=== PATIENT | female | born 1945 | race Caucasian/White ===

== ENCOUNTER 2018-12-12 09:45 | Day surgery (SDC) | payer MEDICARE, SELFPAY ==
[2018-12-12] MEDS: PROPARACAINE 0.5% OPHTH SOL 2 DROPS EYE-OP (10:30)
[2018-12-12 10:34] VITALS: BP 135/67; PULSE 63; RESP 15; TEMP 36.4; O2SAT 98; BMI 25.8
[2018-12-12] MEDS: CATARACT EYE COMPOUND (10 DROPS/SYRINGE) 3 DROPS EYE-OP (10:43)
--- NOTE | 2018-12-12 11:32 | PM.PREOP ---
Pre-operative Note Interval Note History & Physical reviewed/Exam performed by Physician: Yes Changes to H&P: No
[2018-12-12] MEDS: PHENYLEPHRINE/LIDOCAINE VIAL (OR) 0.2 ML EYE-OP (11:57)
[2018-12-12] MEDS: CHONDROIDTIN/SOD HYALURONATE 1.05 ML SYRINGE INTRAOCULA (11:58)
[2018-12-12] MEDS: MOXIFLOXACIN OPHTH DROPS 3 ML BOTTLE 2 DROPS INJ (11:58)
[2018-12-12] MEDS: BALANCED SALT IRRIG SOLN NO.2 500 ML, EPINEPHrine 1 MG IRR (11:58)
[2018-12-12] MEDS: TETRACAINE 0.5% OPHTH DROPS 4 ML 2 DROPS EYE-RIGHT (11:59)
[2018-12-12] MEDS: LIDOCAINE 2% INJ SDV 5 ML INJ (12:00)
[2018-12-12 12:16] VITALS: BP 95/65; PULSE 55; RESP 16; TEMP 36.3; O2SAT 97
--- NOTE | 2018-12-12 12:16 | PM.OP.1 ---
Procedure & Clinicians Procedure: cataract extraction with inraocular lens implant, right Same procedure as scheduled: Yes Indications: Visually significant cataract combined form, right Surgeon: Julian Francois Click Yes if Unassisted: Yes Anesthesia Type: MAC +/- Operative Notes Procedure in detail: The patient was brought to the operating suite. The correct patient, surgical site and lens were confirmed. 0.5 % tetracaine drops were placed in the right eye. The patient was prepped and draped in the typical sterile manner. A lid speculum was placed in the eye. 2% lidocaine was placed on the eye. A paracentesis port was created with a side-port blade. 0.1 mL of 1 preservative free lidocaine with phenylephrine was injected into the anterior chamber. Viscoelastic was injected into the anterior chamber. A 2.6mm keratome was used to create a clear corneal temporal incision. Cystotome and Utrata forceps were used to create a continuous curvilinear capsulorrhexis. Balanced salt solution was used to hydrodissect the nucleus. Phacoemulsification was used to remove the lens. The capsular bag was inflated with viscoelastic. A King ZBOO 20.0D lens was inserted into the capsule. Viscoelastic was removed and the wound hydrated. The wound was found to be leak free and the eye was assessed to be at normal physiologic pressure. 0.1mL Vigamox was injected into the anterior chamber. The lid speculum was removed and the patient left the operating room in excellent condition. Complications: none Condition: stable Disposition: same day surgery
== END 2018-12-12 12:35 | disposition home or self-care (01) ==
LOC: OR 09:48
PROVIDERS: Visit Provider Ophthalmology
DX: H25.11 Age-related nuclear cataract, right eye (principal)
CPT/HCPCS: J0171; J2250; J3010

== ENCOUNTER 2018-12-26 09:37 | Day surgery (SDC) | payer MEDICARE, SELFPAY ==
[2018-12-26] MEDS: PROPARACAINE 0.5% OPHTH SOL 2 DROPS EYE-OP (10:10)
[2018-12-26 10:12] VITALS: BMI 26.6
[2018-12-26] MEDS: CATARACT EYE COMPOUND (10 DROPS/SYRINGE) 3 DROPS EYE-OP (10:18)
[2018-12-26 10:19] VITALS: BP 120/75; PULSE 82; RESP 16; TEMP 36.3; O2SAT 96
[2018-12-26] MEDS: MIDAZOLAM 2 MG/2 ML VIAL 1 MG IV (10:32)
--- NOTE | 2018-12-26 11:14 | PM.PREOP ---
Pre-operative Note Interval Note History & Physical reviewed/Exam performed by Physician: Yes Changes to H&P: No
[2018-12-26] MEDS: CHONDROIDTIN/SOD HYALURONATE 1.05 ML SYRINGE INTRAOCULA (11:44)
[2018-12-26] MEDS: LIDOCAINE JELLY 2% 5 ML 1 APPLIC TOP (11:44)
[2018-12-26] MEDS: MOXIFLOXACIN OPHTH DROPS 3 ML BOTTLE 2 DROPS INJ (11:45)
[2018-12-26] MEDS: PHENYLEPHRINE/LIDOCAINE VIAL (OR) 0.2 ML EYE-OP (11:45)
[2018-12-26] MEDS: BALANCED SALT IRRIG SOLN NO.2 500 ML, EPINEPHrine 1 MG IRR (11:45)
[2018-12-26] MEDS: LIDOCAINE 2% INJ SDV 1 ML INJ (12:12)
--- NOTE | 2018-12-26 12:14 | PM.OP.1 ---
Procedure & Clinicians Procedure: cataract extraction with intraocular lens implant, left Same procedure as scheduled: Yes Surgeon: Julian Francois Click Yes if Unassisted: Yes Anesthesia Type: MAC +/- Operative Notes Procedure in detail: The patient was brought to the operating suite. The correct patient, surgical site and lens were confirmed. 0.5 % tetracaine drops were placed in the left eye. The patient was prepped and draped in the typical sterile manner. A lid speculum was placed in the eye. 3.5% lidocaine gel was placed on the eye. A paracentesis port was created with a side-port blade. 0.1 mL of 1% preservative free lidocaine with phenylephrine was injected into the anterior chamber. Viscoelastic was injected into the anterior chamber. A 2.4mm keratome was used to create a clear corneal temporal incision. Cystotome and Utrata forceps were used to create a continuous curvilinear capsulorrhexis. Balanced salt solution was used to hydrodissect the nucleus. Phacoemulsification was used to remove the lens. The capsular bag was inflated with viscoelastic. A King ZBOO +19.0D lens was inserted into the capsule. Viscoelastic was removed and the wound hydrated. The wound was sutured with 10-0 nylon, and knot buried. The wound was found to be leak free and the eye was assessed to be at normal physiologic pressure. 0.1mL Vigamox was injected into the anterior chamber. The lid speculum was removed and the patient left the operating room in excellent condition. Complications: none Condition: stable Disposition: same day surgery
[2018-12-26 12:20] VITALS: BP 116/80; PULSE 59; RESP 18; TEMP 36.4; O2SAT 98
[2018-12-26] MEDS: ACETAMINOPHEN 325 MG TABLET 650 MG PO (12:31)
--- NOTE | 2018-12-26 12:37 | SUR.PHASEII ---
Patient complains of pain level 5/10 to left surgical eye. Mild pain when closes eye. She states that she is unable to shut eye all the way. Arrived to [facility] with eye sheild. Dr. Francois spoke with patient post op. Daughter at bedside. Medicated for pain.
--- NOTE | 2018-12-26 15:14 | SUR.PHASEII ---
1330: Pt waited 1 hour post-op hoping to speak with Dr. Francois but he was in the OR longer than expected. Pt requested a call from Dr. Francois at his earliest convenience and expressed a desire to be discharged at this time. Pt was discharged and note given to Dr. Francois with pt's phone number.
== END 2018-12-26 13:42 | disposition home or self-care (01) ==
LOC: OR 09:39
PROVIDERS: PCP Student in an Organized Health Care Education/Training Program; Visit Provider Ophthalmology
DX: H25.812 Combined forms of age-related cataract, left eye (principal)
CPT/HCPCS: J0171; J2250; J3010